=== PATIENT | female | born 1985 | race Caucasian/White ===

== ENCOUNTER 2022-02-22 02:08 | Emergency (ER) | payer OTHER, SELFPAY ==
[2022-02-22] MEDS ORDERED: Lidocaine 1% (PF) 30 ML VIAL ONE (03:26)
== END 2022-02-22 04:15 | disposition home or self-care (01) ==
LOC: NAV ERS 02:08
DX: S01.81XA Laceration without foreign body of other part of head, initial encounter (principal); S80.12XA Contusion of left lower leg, initial encounter; S30.810A Abrasion of lower back and pelvis, initial encounter; S20.412A Abrasion of left back wall of thorax, initial encounter; F10.129 Alcohol abuse with intoxication, unspecified; F17.290 Nicotine dependence, other tobacco product, uncomplicated; F17.210 Nicotine dependence, cigarettes, uncomplicated; V86.59XA Driver of other special all-terrain or other off-road motor vehicle injured in nontraffic accident, initial encounter
CPT/HCPCS: 12011; 70450; 72125; J2001